=== PATIENT | female | born 1985 | race African-American/Black ===

== ENCOUNTER 2017-01-12 18:51 | Emergency (ER) | payer OTHER ==
[~2017-01-12] VITALS: Ht 154.9 cm; Wt 52.2 kg
[~2017-01-12 18:51] MED LIST: IBUPROFEN 600600 M1 PO; NOHOMEMEDICATIONS; NORCO 5-325 TA1 EACH PO; PREDNISONE 10 M10 M1 PO
[2017-01-12 19:07] LABS: URINE BILIRUBIN NEGATIVE (Negative); URINE BLOOD NEGATIVE (Negative); URINE COLOR YELLOW; URINE GLUCOSE-RANDOM* NEGATIVE (Negative); URINE KETONES NEGATIVE (Negative); URINE PROTEIN (DIPSTICK) NEGATIVE (Negative); URINE UROBILINOGEN 0.2 E.U./dl (0.2-1.0)
[2017-01-12 19:10] LABS: URINE LEUKOCYTES-REFLEX TRACE (Negative)
[2017-01-12] MEDS ORDERED: MACROBID 100 M100 M1 PO (19:41)
[2017-01-12 19:47] VITALS: BP 138/100
== END 2017-01-12 19:49 | disposition home or self-care (01) ==
LOC: ER 18:51
PROVIDERS: Physician Assistant
DX: N39.0 Urinary tract infection, site not specified (principal); Z87.440 Personal history of urinary (tract) infections; Z98.890 Other specified postprocedural states

== ENCOUNTER 2017-01-26 19:12 | Emergency (ER) | payer OTHER ==
[~2017-01-26] VITALS: Ht 154.9 cm; Wt 52.2 kg
[2017-01-26 19:12] VITALS: BP 136/93
[~2017-01-26 19:12] MED LIST changes: +MACROBID 100 M100 M1 PO
[2017-01-26] MEDS ORDERED: NORFLEX100 MG PO (19:42)
[2017-01-26] MEDS ORDERED: NAPROSYN500 MG PO (19:42)
== END 2017-01-26 20:01 | disposition home or self-care (01) ==
LOC: ER 19:12
DX: S13.4XXA Sprain of ligaments of cervical spine, initial encounter (principal); Z98.890 Other specified postprocedural states; V43.52XA Car driver injured in collision with other type car in traffic accident, initial encounter; Y93.89 Activity, other specified; Y92.89 Other specified places as the place of occurrence of the external cause; Y99.8 Other external cause status